=== PATIENT | male | born 1995 | race Caucasian/White ===

== ENCOUNTER 2017-05-15 07:34 | Outpatient (CLI) | payer OTHER ==
--- NOTE | 2017-05-15 09:36 | MRI Report ---
EXAM: RIGHT KNEE MRI WITHOUT CONTRAST EXAM DATE: 05/15/2017 08:34 AM. CLINICAL HISTORY: PAIN IN KNEE. COMPARISON: None. TECHNIQUE: Multiplanar, multisequence T1-weighted and fluid-sensitive sequences of the knee without c ontrast. Other: None. FINDINGS: Bones: No fractures or subluxations. No marrow edema. No bone lesions. Prominent tibial tuberosity wi th irregular outline, can be due to previous Justin-Schlatter's disease, without acute edema. Articular Cartilage: Unremarkable. Medial Meniscus: The medial meniscus is intact. Lateral Meniscus: The lateral meniscus is intact. Cruciate Ligaments: The anterior and posterior cruciate ligaments are intact. Collateral Ligaments: The medial collateral and lateral collateral ligamentous structures are intact. Tendons: The quadriceps, patellar, semimembranosus, and popliteus tendons are unremarkable. Musculature: No edema or fatty atrophy. Other: No effusion. No popliteal cyst. No loose bodies. The medial and lateral retinacula, patellofe moral ligaments and iliotibial band are intact. No bursitis. The subcutaneous tissues are unremarkabl e. Mild edema in the superolateral part of the Hoffa's fat pad. IMPRESSION: 1. Mild edema in the superolateral part of the Hoffa's fat pad, nonspecific, but can be due to mild i mpingement in the presence of pain. No subluxation, patella blanca or patella baja. 2. Prominent tibial tuberosity with irregular outline, can be due to previous Solon-Schlatter's dise ase, without acute edema. 3. No other MRI abnormalities or evidence of internal derangement in the knee. Menisci, collateral an d cruciate ligaments are intact. [facility] MUSCULOSKELETAL RADIOLOGY SECTION Referring Provider Line: [phone] SITE ID: [id number]
== END 2017-05-15 07:35 | disposition home or self-care (01) ==
LOC: DI 07:34
PROVIDERS: ATTEND Student in an Organized Health Care Education/Training Program
DX: M25.561 Pain in right knee (principal)